=== PATIENT | female | born 1975 | race Caucasian/White ===

== ENCOUNTER → 2016-12-08 | Day surgery (SDC) | payer OTHER ==
[~2016-12-08] VITALS: Ht 162.6 cm; Wt 90.7 kg
[~2016-12-08] MED LIST: DOCUSATE SODIU100 MG PO; IBUPROFEN800 MG PO; PERCOCET 325 MG1 TA2 PO
--- NOTE | 2016-12-08 12:55 | RADIOLOGY REPORT ---
EXAMINATION: XR PORTABLE CHEST CLINICAL INFORMATION: Status post insertion of right Port-A-Cath. Evaluate for pneumothorax. COMPARISON: Intraoperative films from earlier today. CT scan of the chest dated 11/15/2016. TECHNIQUE: Two portable AP semierect views of the chest were obtained. FINDINGS: Evaluation is limited given patient's large body habitus and portable technique. A right subclavian Port-A-Cath is in place with tip faintly seen in the deep SVC. No definite pneumothorax is noted. There is mild central vascular congestion. Lungs are otherwise unremarkable with no evidence of pulmonary edema, focal consolidation or effusion. The cardiomediastinal silhouette is borderline normal in size, unchanged. Bony structures are unremarkable. IMPRESSION: 1. Port-A-Cath tip faintly visualized in region of the deep SVC. 2. No pneumothorax seen.
--- NOTE | 2016-12-08 13:18 | RADIOLOGY REPORT ---
EXAMINATION:\H\ \N\XR CHEST CLINICAL INFORMATION: Right Port-A-Cath. COMPARISON: None TECHNIQUE: AP and oblique spot views of the lower chest/mediastinum are obtained. FLUOROSCOPY TIME: 8 seconds. FINDINGS AND IMPRESSION: On the AP view, there is a faint wire or catheter projected terminating in the region of the cavoatrial junction. On the oblique view, no discrete wire or catheter is identified.
--- NOTE | 2016-12-08 14:22 | Operative Report ---
Operative/Inv Procedure Report Surgery Date: 12/08/16 Name of Procedure: Right subclavian Port-A-Cath placement Pre-Operative Diagnosis: Breast cancer Post-Operative Diagnosis: Same Estimated Blood Loss: scant Surgeon/Senior Electrical Project Manager: LILY CORTEZ MD Anesthesia: local monitored anesthesi Implants: [employer] Operative/Procedure Note Note: After consent she is brought to the operative laid supine. Sedation was obtained and her right chest and neck were prepped and draped. The skin in the right upper chest was symmetrical local anesthesia. Subclavian vein was per cutaneously accessed and a wire placed on the level of the right atrium under fluoroscopic guidance. An incision was then made inferiorly and pocket created bluntly to accept the port. The port was then placed in the pocket and tunneled up through the separate stab incision. Using fluoroscopy the catheter was measured and trimmed to 21 cm. Peel-away sheath was then placed under fluoroscopy. The catheter was placed through the sheath and then it was extracted. Final fluoroscopic images showed the catheter in the SVC/atrial junction. The port was flushed with concentrated heparin. It was anchored with 0 Vicryl to the deep tissues. Wound was then closed in layers of vicryl sutures. Steri-Strips and sterile dressing applied.
== END ==
LOC: STS 01:19
DX: C50.911 Malignant neoplasm of unspecified site of right female breast (principal)
CPT/HCPCS: 81025; C1788; J0131; J0690; J1644; J2250